=== PATIENT | female | born 1955 | race Caucasian/White ===

== ENCOUNTER → 2016-06-24 | Outpatient (REF) | payer BC ==
[~2016-06-24] MED LIST: /ESOM40CA; /FEXO18TA; ACET65TA; ADVICOR; ANTARA; BABY81CH; CALCCHW12; MULTIVIT; PERC5TAB8; PRIN5TAB; SYNT112T; TENO25TA; VALT500T; ZETI10TA; ZOLO100T
[2016-06-24 16:43] LABS: MEAN CORPUSCULAR HGB CONC 33.6 g/dl (32.0-36.5); MEAN CORPUSCULAR VOLUME 83.4 fl (80.0-96.0); RED CELL DISTRIBUTION WIDTH 12.8 % (11.5-14.5); WHITE BLOOD COUNT 4.2 K/mm3 (4.0-10.0)
[2016-06-24 17:15] LABS: ALBUMIN 4.2 GM/DL (3.2-5.2); ALBUMIN/GLOBULIN RATIO 1.4 (1.00-1.93); BILIRUBIN,TOTAL 0.4 MG/DL (0.2-1.0); CALCIUM LEVEL 9.5 MG/DL (8.8-10.2); CREATININE FOR GFR 1.07 MG/DL (0.55-1.02); GLOMERULAR FILTRATION RATE 55.5 (>45); POTASSIUM SERUM 4.3 MEQ/L (3.5-5.1); TOTAL PROTEIN 7.2 GM/DL (6.4-8.2)
== END ==
LOC: M SFHCCLAY 09:58
PROVIDERS: ATTEND Nurse Practitioner Family
DX: I10 Essential (primary) hypertension (principal); E78.4 Other hyperlipidemia; E03.9 Hypothyroidism, unspecified; E55.9 Vitamin D deficiency, unspecified

== ENCOUNTER → 2016-07-02 | Outpatient (CLI) | payer BC | LOC: M CLY 15:02 | PROVIDERS: ATTEND Internal Medicine Rheumatology ==

== ENCOUNTER → 2016-07-04 | Outpatient (CLI) | payer BC ==
[2016-07-04 18:34] LABS: BASO % 0.5 % (0.0-1.0); EOS # 0.1 K/mm3 (0.0-0.50); EOS % 2.5 % (0.0-3.0); LARGE UNSTAINED CELL # 0.1 K/mm3 (0.0-0.4); LARGE UNSTAINED CELL % 1.6 % (0.0-4.0); LYMPH # 1.1 K/mm3 (1.5-4.5); LYMPH % 25.5 % (24.0-44.0); MEAN CORPUSCULAR HEMOGLOBIN 27.9 pg (27.0-33.0); MEAN CORPUSCULAR HGB CONC 33.1 g/dl (32.0-36.5); MEAN CORPUSCULAR VOLUME 84.1 fl (80.0-96.0); MONO # 0.3 K/mm3 (0.0-0.8); MONO % 5.9 % (0.0-5.0); NEUTROPHILS # 2.9 K/mm3 (1.8-7.7); PLATELET COUNT, AUTOMATED 219 k/mm3 (150-450); RED CELL DISTRIBUTION WIDTH 13.2 % (11.5-14.5); WHITE BLOOD COUNT 4.5 K/mm3 (4.0-10.0)
[2016-07-04 19:08] LABS: ERYTHROCYTE SEDIMENTATION RATE 7 mm/hr (0-30)
--- NOTE | 2016-07-05 01:40 | REP ---
Clinical: Osteoarthritis. Technique: AP, lateral, bilateral oblique views of the right and left foot. Findings: Age-related changes of the interphalangeal joints are and metatarsophalangeal joints noted bilaterally. Moderate degenerative changes of the tarsometatarsal joints includes increase sclerosis and joint space narrowing/irregularity bilaterally. No obvious osseous erosions or significant spurring/osteophyte formation. No evidence for acute fracture or dislocation. No subcutaneous emphysema or radiodense foreign body. Impression: Bilateral mild to moderate age-related degenerative changes. Signed by John Sharp MD 07/05/2016 01:32 A
== END ==
LOC: M CLY 11:23
PROVIDERS: ATTEND Internal Medicine Rheumatology
DX: M19.071 Primary osteoarthritis, right ankle and foot (principal); M19.072 Primary osteoarthritis, left ankle and foot

== ENCOUNTER → 2016-07-29 | Outpatient (REF) | payer BC | LOC: M LABDRAWC 16:15 | PROVIDERS: ATTEND Nurse Practitioner Family | DX: R19.7 Diarrhea, unspecified (principal); R12 Heartburn; R10.9 Unspecified abdominal pain ==

== ENCOUNTER → 2016-08-01 | Outpatient (REF) | payer BC | LOC: M LAB REF 16:30 | PROVIDERS: ATTEND Nurse Practitioner Family | DX: R19.7 Diarrhea, unspecified (principal); R12 Heartburn; R10.9 Unspecified abdominal pain ==

== ENCOUNTER → 2016-11-05 | Outpatient (REF) | payer BC ==
[2016-11-05 11:40] LABS: ANION GAP 5 MEQ/L (8-16); BLOOD UREA NITROGEN 17 MG/DL (7-18); CALCIUM LEVEL 9.6 MG/DL (8.8-10.2); CARBON DIOXIDE LEVEL 31 MEQ/L (21-32); CHLORIDE LEVEL 107 MEQ/L (98-107); CREATININE FOR GFR 0.96 MG/DL (0.55-1.02); GLOMERULAR FILTRATION RATE > 60.0 (>45); GLUCOSE, FASTING 90 MG/DL (80-110); POTASSIUM SERUM 3.9 MEQ/L (3.5-5.1); SODIUM LEVEL 143 MEQ/L (136-145)
== END ==
LOC: M SFHCCLAY 09:17
PROVIDERS: ATTEND Nurse Practitioner Family
DX: E78.4 Other hyperlipidemia (principal)

== ENCOUNTER → 2017-05-06 | Outpatient (REF) | payer BC ==
[2017-05-06 11:39] LABS: MEAN CORPUSCULAR HGB CONC 32.7 g/dl (32.0-36.5); MEAN CORPUSCULAR VOLUME 82.6 fl (80.0-96.0); PLATELET COUNT, AUTOMATED 243 10^3/uL (150-450); RED CELL DISTRIBUTION WIDTH 13.8 % (11.5-14.5); WHITE BLOOD COUNT 4.5 10^3/uL (4.0-10.0)
[2017-05-06 12:28] LABS: ALBUMIN 4.1 GM/DL (3.2-5.2); ALBUMIN/GLOBULIN RATIO 1.37 (1.00-1.93); ALKALINE PHOSPHATASE 70 U/L (45-117); ALT/SGPT 27 U/L (12-78); ANION GAP 7 MEQ/L (8-16); AST/SGOT 30 U/L (7-37); BILIRUBIN,TOTAL 0.3 MG/DL (0.2-1.0); BLOOD UREA NITROGEN 24 MG/DL (7-18); CALCIUM LEVEL 9.5 MG/DL (8.8-10.2); CARBON DIOXIDE LEVEL 28 MEQ/L (21-32); CHLORIDE LEVEL 109 MEQ/L (98-107); CHOLESTEROL LEVEL 175 MG/DL (<200); CREATININE FOR GFR 0.93 MG/DL (0.55-1.02); GLOMERULAR FILTRATION RATE > 60.0 (>45); GLUCOSE, FASTING 86 MG/DL (80-110); POTASSIUM SERUM 4.3 MEQ/L (3.5-5.1); SODIUM LEVEL 144 MEQ/L (136-145); TOTAL PROTEIN 7.1 GM/DL (6.4-8.2); TRIGLYCERIDES LEVEL 89 MG/DL (<150)
== END ==
LOC: M SFHCCLAY 08:15
PROVIDERS: ATTEND Nurse Practitioner Family
DX: K21.9 Gastro-esophageal reflux disease without esophagitis (principal); I10 Essential (primary) hypertension; E78.4 Other hyperlipidemia; E03.9 Hypothyroidism, unspecified; E55.9 Vitamin D deficiency, unspecified

== ENCOUNTER → 2017-05-22 | Outpatient (CLI) | payer BC ==
--- NOTE | 2017-05-22 14:11 | REPMRS ---
Patient History The patient states she had a clinical breast exam in 05/18 Family history of prostate cancer in father at age 50 or over and breast cancer in paternal aunt at age 50 or over. Took hormonal contraceptives for 10 years. Taking unspecified hormones for 3 years 6 months. Digital Woman Screen Mammo: May 22, 2017 - Exam #: [id number] Bilateral CC and MLO view(s) were taken. Technologist: Shreya Casey, Technologist Prior study comparison: May 21, 2016, digital woman screen mammo performed at [facility] [place] [employer] [facility]. April 10, 2015, digital woman screen mammo performed at [facility] [place] [employer] [facility]. FINDINGS: There are scattered fibroglandular densities. There has been no change in the appearance of the mammogram from the prior studies. There is a mild amount of residual fibroglandular tissue which is fairly symmetric. There is no interval development of dominant mass, architectural distortion, or clustered microcalcification suggestive of malignancy. ASSESSMENT: BI-RADS/ACR category 1 mammogram. Negative. Recommendation Routine screening mammogram in 1 year (for women over age 40). This mammogram was interpreted with the aid of an FDA-approved computer-aided dectection system. Electronically Signed By: Michael Reza MD 05/22/17 [id number]
== END ==
LOC: M WHC 10:21
PROVIDERS: ATTEND Nurse Practitioner Family
DX: Z12.31 Encounter for screening mammogram for malignant neoplasm of breast (principal); Z92.0 Personal history of contraception

== ENCOUNTER → 2017-05-29 | Outpatient (CLI) | payer BC | LOC: M WHC 10:47 | DX: R10.2 Pelvic and perineal pain (principal) | CPT/HCPCS: 76830 ==

== ENCOUNTER → 2017-08-14 | Outpatient (REF) | payer BC ==
[2017-08-14 17:22] LABS: THYROID STIMULATING HORMONE 0.204 uIU/ML (0.358-3.740)
== END ==
LOC: M SFHCCLAY 09:52
DX: E03.9 Hypothyroidism, unspecified (principal)
CPT/HCPCS: 84443

== ENCOUNTER → 2017-11-17 | Outpatient (REF) | payer BC ==
[2017-11-17 12:45] LABS: THYROID STIMULATING HORMONE 0.542 uIU/ML (0.358-3.740)
== END ==
LOC: M SFHCCLAY 08:20
DX: E03.9 Hypothyroidism, unspecified (principal)
CPT/HCPCS: 84443

== ENCOUNTER → 2017-11-26 | Outpatient (CLI) | payer BC | LOC: M RAD 07:40 | DX: R10.11 Right upper quadrant pain (principal) | CPT/HCPCS: 76700 ==

== ENCOUNTER → 2018-05-15 | Outpatient (REF) | payer BC ==
[2018-05-15 11:53] LABS: ALBUMIN 4.2 GM/DL (3.2-5.2); ALKALINE PHOSPHATASE 86 U/L (45-117); ALT/SGPT 20 U/L (12-78); ANION GAP 8 MEQ/L (8-16); AST/SGOT 29 U/L (7-37); BILIRUBIN,TOTAL 0.4 MG/DL (0.2-1.0); BLOOD UREA NITROGEN 25 MG/DL (7-18); CARBON DIOXIDE LEVEL 26 MEQ/L (21-32); CHLORIDE LEVEL 107 MEQ/L (98-107); CHOLESTEROL LEVEL 171 MG/DL (<200); CHOLESTEROL RISK RATIO 2.342 (<5); CREATININE FOR GFR 0.95 MG/DL (0.55-1.30); GLOMERULAR FILTRATION RATE > 60.0 (>45); GLUCOSE, FASTING 93 MG/DL (70-100); HDL CHOLESTEROL 73 MG/DL (>40); HEMOGLOBIN 12.5 g/dl (12.0-15.5); LDL CHOLESTEROL 88 MG/DL (<100); MEAN CORPUSCULAR HEMOGLOBIN 26.7 pg (27.0-33.0); MEAN CORPUSCULAR HGB CONC 32.1 g/dl (32.0-36.5); MEAN CORPUSCULAR VOLUME 83.2 fl (80.0-96.0); NON-HDL-C 98 MG/DL; PLATELET COUNT, AUTOMATED 311 10^3/uL (150-450); POTASSIUM SERUM 4.2 MEQ/L (3.5-5.1); RED BLOOD COUNT 4.69 10^6/uL (4.00-5.40); SODIUM LEVEL 141 MEQ/L (136-145); THYROID STIMULATING HORMONE 0.281 uIU/ML (0.358-3.740); TRIGLYCERIDES LEVEL 50 MG/DL (<150)
[2018-05-15 12:03] LABS: TOTAL 25(OH) VITAMIN D 38.4 NG/ML (30.0-100.0)
== END ==
LOC: M SFHCCLAY 07:54
DX: K21.9 Gastro-esophageal reflux disease without esophagitis (principal); I10 Essential (primary) hypertension; E78.49 Other hyperlipidemia; E03.9 Hypothyroidism, unspecified; E55.9 Vitamin D deficiency, unspecified
CPT/HCPCS: 84443

== ENCOUNTER → 2018-05-28 | Outpatient (REF) | payer BC ==
[2018-05-30 15:11] LABS: HPV HYBRID CAPTURE II Negative (Negative)
== END ==
LOC: M SFHCWAGY 10:41
PROVIDERS: ATTEND Nurse Practitioner Family
DX: Z01.419 Encounter for gynecological examination (general) (routine) without abnormal findings (principal); Z12.72 Encounter for screening for malignant neoplasm of vagina; Z12.4 Encounter for screening for malignant neoplasm of cervix
CPT/HCPCS: 87624; G0123

== ENCOUNTER → 2018-05-28 | Outpatient (CLI) | payer BC ==
--- NOTE | 2018-05-28 11:24 | REPMRS ---
Patient History The patient states she had a clinical breast exam in 05/2018. Family history of prostate cancer at age 50 or over in father, breast cancer at age 50 or over in paternal aunt. Took hormonal contraceptives for 10 years. Took unspecified hormones for 3 years 6 months. 3D TOMOSYNTHESIS WAS PERFORMED. Digital Woman Screen Mammo: May 28, 2018 - Exam #: [id number] Bilateral CC and MLO view(s) were taken. Technologist: Luciana Garzon, Technologist Prior study comparison: May 22, 2017, digital woman screen mammo performed at [facility] [employer] [facility]. May 21, 2016, digital woman screen mammo performed at [facility] [employer] [facility]. FINDINGS: There are scattered fibroglandular densities. There has been no change in the appearance of the mammogram from the prior studies. There is a mild amount of residual fibroglandular tissue which is fairly symmetric. There is no interval development of dominant mass, architectural distortion, or clustered microcalcification suggestive of malignancy. Assessment: BI-RADS/ACR category 1 mammogram. Negative. Recommendation Routine screening mammogram in 1 year (for women over age 40). This mammogram was interpreted with the aid of an FDA-approved computer-aided dectection system. Electronically Signed By: Michael Reza MD 05/28/18 [id number]
== END ==
LOC: M WHC 10:20
PROVIDERS: ATTEND Nurse Practitioner Family
DX: Z12.31 Encounter for screening mammogram for malignant neoplasm of breast (principal); Z80.3 Family history of malignant neoplasm of breast; Z80.42 Family history of malignant neoplasm of prostate

== ENCOUNTER → 2018-09-10 | Outpatient (REF) | payer BC ==
[~2018-09-10] MED LIST changes: -/ESOM40CA; +NEXI1CAP3
[2018-09-10 16:51] LABS: THYROID STIMULATING HORMONE 0.611 uIU/ML (0.358-3.740)
== END ==
LOC: M SFHCCLAY 10:17
PROVIDERS: ATTEND Nurse Practitioner Family
DX: K21.9 Gastro-esophageal reflux disease without esophagitis (principal); E03.9 Hypothyroidism, unspecified

== ENCOUNTER → 2019-02-12 | Outpatient (REF) | payer BC ==
[2019-02-12 12:38] LABS: ALBUMIN 4.4 GM/DL (3.2-5.2); ALT/SGPT 24 U/L (12-78); BILIRUBIN,TOTAL 0.3 MG/DL (0.2-1.0); BLOOD UREA NITROGEN 17 MG/DL (7-18); CALCIUM LEVEL 10.2 MG/DL (8.8-10.2); CARBON DIOXIDE LEVEL 25 MEQ/L (21-32); CHLORIDE LEVEL 109 MEQ/L (98-107); CHOLESTEROL LEVEL 189 MG/DL (<200); CHOLESTEROL RISK RATIO 2.739 (<5); CREATININE FOR GFR 0.99 MG/DL (0.55-1.30); GLOMERULAR FILTRATION RATE > 60.0 (>45); GLUCOSE, FASTING 117 MG/DL (70-100); HDL CHOLESTEROL 69 MG/DL (>40); LDL CHOLESTEROL 104 MG/DL (<100); NON-HDL-C 120 MG/DL; POTASSIUM SERUM 4.4 MEQ/L (3.5-5.1); SODIUM LEVEL 142 MEQ/L (136-145); THYROID STIMULATING HORMONE 0.161 uIU/ML (0.358-3.740); TOTAL PROTEIN 7.2 GM/DL (6.4-8.2); TRIGLYCERIDES LEVEL 82 MG/DL (<150)
== END ==
LOC: M SFHCCLAY 09:00
PROVIDERS: ATTEND Nurse Practitioner Family
DX: N18.3 Chronic kidney disease, stage 3 (moderate) (principal); E78.5 Hyperlipidemia, unspecified; E03.9 Hypothyroidism, unspecified; E55.9 Vitamin D deficiency, unspecified

== ENCOUNTER → 2019-04-06 | Outpatient (CLI) | payer BC ==
[2019-04-06 09:30] LABS: HEMATOCRIT 39.4 % (36.0-47.0); HEMOGLOBIN 12.5 g/dl (12.0-15.5); MEAN CORPUSCULAR HEMOGLOBIN 26.8 pg (27.0-33.0); MEAN CORPUSCULAR HGB CONC 31.7 g/dl (32.0-36.5); MEAN CORPUSCULAR VOLUME 84.5 fl (80.0-96.0); PLATELET COUNT, AUTOMATED 260 10^3/uL (150-450); RED BLOOD COUNT 4.66 10^6/uL (4.00-5.40); WHITE BLOOD COUNT 5.7 10^3/uL (4.0-10.0)
[2019-04-06 09:50] LABS: INR 1.07; PROTHROMBIN TIME 13.6 SECONDS (11.8-14.0)
[2019-04-06 10:01] LABS: ALT/SGPT 17 U/L (12-78); BILIRUBIN,TOTAL 0.5 MG/DL (0.2-1.0); BLOOD UREA NITROGEN 14 MG/DL (7-18); CALCIUM LEVEL 9.8 MG/DL (8.8-10.2); CARBON DIOXIDE LEVEL 25 MEQ/L (21-32); CHLORIDE LEVEL 108 MEQ/L (98-107); CREATININE FOR GFR 0.98 MG/DL (0.55-1.30); GLOMERULAR FILTRATION RATE > 60.0 (>45); GLUCOSE, FASTING 81 MG/DL (70-100); POTASSIUM SERUM 4.4 MEQ/L (3.5-5.1); SODIUM LEVEL 140 MEQ/L (136-145); TOTAL PROTEIN 7.1 GM/DL (6.4-8.2)
[2019-04-06 10:22] LABS: ERYTHROCYTE SEDIMENTATION RATE 12 mm/hr (0-30)
--- NOTE | 2019-04-06 10:23 | REP ---
Two-view chest: 04/06/2019. Indication: Preoperative assessment. Comparison: 07/04/2009. Findings: The lungs are clear. There is no pleural effusion or pneumothorax. The cardiomediastinal silhouette is unremarkable. Impression: Clear lungs. Electronically Signed by Eitan Cooney DO 04/06/2019 10:15 A
--- NOTE | 2019-04-06 22:09 | ECGEPIP ---
[facility] Test Date: 2019-04-06 Pat Name: ALIS GONZALEZ Department: Room: - Gender: Female Pharmacy Manager: : 1955 Requested By: Karen Webster @ [facility] Order Number: [id number] Reading MD: Nish Stone Measurements Intervals [place] Rate: 57 P: 56 RI: 202 QRS: 24 QRSD: 89 T: 41 QT: 418 QTc: 410 Interpretive Statements Sinus bradycardia Normal EKG Comparison tracing not on file Electronically Signed on 04-06-2019 22:09:20 EST by Nish Stone
== END ==
LOC: M LAB 08:53
PROVIDERS: ATTEND Orthopaedic Surgery
DX: Z01.818 Encounter for other preprocedural examination (principal); M19.012 Primary osteoarthritis, left shoulder

== ENCOUNTER 2019-04-23 07:00 | Inpatient (IN) | payer BC ==
--- NOTE | 2019-04-14 10:46 | HPE ---
DATE OF ADMISSION: 04/23/2019 ATTENDING PHYSICIAN: Dr. Toth CHIEF COMPLAINT: Left shoulder pain and stiffness. HISTORY: The patient is a pleasant 63-year-old female with progressively worsening left shoulder pain and stiffness. She has failed to improve with conservative measures. She continues to have symptoms with activities of daily living. She has consented for an elective left total shoulder arthroplasty with Dr. Toth for her continued symptoms. Medical optimization pending with Dr. Hobson. CURRENT MEDICATIONS: - fenofibrate 43 mg daily - Protonix 40 mg twice daily - levocetirizine 5 mg daily - lovastatin 40 mg daily - Zoloft 100 mg daily - levothyroxine 125 mcg daily - dicyclomine 10 mg daily - calcium with vitamin D daily - losartan 40 mg daily ALLERGIES: 1. SULFA. 2. PERCOCET. CHRONIC MEDICAL CONDITIONS: Hypertension. Hyperlipidemia. Seasonal allergies. Hypothyroid. Anxiety. Depression. Gastroesophageal reflux disease. PAST SURGICAL HISTORY: Right shoulder reverse arthroplasty. Left carpal metacarpal joint arthroplasty. Three sections. Left knee arthroscopy times two. SOCIAL HISTORY: The patient is a former smoker and occasionally consumes alcohol. She is and lives at home with . REVIEW OF SYSTEMS: The patient denies fevers, chills, nausea, vomiting or diarrhea. She denies chest pain, shortness of breath, lightheadedness, dizziness or headaches. She denies any recent upper respiratory or urinary tract infection symptoms. No complaints of abdominal pain. She does continue to have left shoulder pain and stiffness with activities of daily living. PHYSICAL EXAMINATION: GENERAL: Well-nourished, well-developed female in no apparent distress. She is alert, oriented and cooperative. Her mood and affect are appropriate. VITAL SIGNS: Height 5 feet 4 inches, weight 172 pounds, temperature 97.9, blood pressure 120/80, heart rate 65, respirations 14. NECK: Supple without lymphadenopathy. HEART: Regular rate and rhythm. LUNGS: Clear to auscultation bilaterally. Breathing is regular and nonlabored. ABDOMEN: Soft and nontender to palpation. Bowel sounds are present. MUSCULOSKELETAL: Left shoulder exhibits no gross abnormalities. Skin is intact. No real tenderness to palpation. The patient can forward flex shoulder to approximately 120 degrees, abduct to 90 degrees, internally rotate to the SI joint and externally rotate to 10 degrees. Strength is 4+/5 secondary to pain and stiffness. Her radial pulse is palpable. Capillary refill is brisk and her sensation is intact. LABORATORY DATA: EKG notable for sinus bradycardia, otherwise normal EKG. Chest x-ray the lungs are clear. There is no pleural effusion or pneumothorax. The cardiomediastinal silhouette is unremarkable. Left shoulder x-ray notable for end-stage degenerative changes. Prothrombin time 13.6, INR 1.07. Comprehensive metabolic profile: Fasting glucose 81, BUN 14, creatinine 0.98, GFR greater than 60, sodium 140, potassium 4.4, chloride elevated at 108, carbon dioxide 25, anion gap decreased at 7, calcium 9.8, AST 21, ALT 17, alkaline phosphatase 92, total bilirubin 0.5, total protein 7.1, albumin 4.0, albumin-globulin ratio 1.29. Complete blood count: ESR 12, WBC is 5.7, RBC is 4.66, hemoglobin 12.5, hematocrit 39.4, platelets 260. IMPRESSION: Left shoulder osteoarthritis with x-rays notable for end-stage degenerative changes. PLAN: The patient has consented for an elective left total shoulder arthroplasty with Dr. Toth for her continued symptoms. Medical optimization pending with Dr. Hobson. KRYSTAL
[~2019-04-23] VITALS: Ht 162.6 cm; Wt 80.3 kg
[2019-04-23] VITALS (7 sets, daily range): BP systolic 112–125; BP diastolic 39–74
[~2019-04-23 07:00] MED LIST changes: +ACETAMINOPHEN 500 MG TAB PO ONE; +CALCTAB41 PO; +DIOV160T6 PO; +FENO134C PO; +FENO43CA PO; +LEVO112T2 PO; +LEVO125T4 PO; +LEVOTAB10 PO; +LIDOCAINE 1% MDV 20ML VIAL SQ PRN; +LOSA50TA88 PO; +LOVA40TA PO; +LR 1,000 ML IV ONE; +PROBCAP14 PO; +PROTPAK PO; +SERT-138 PO; +ceFAZolin SOD 2 GM in IV 1 EA IV ONE
[2019-04-23] MEDS ORDERED: ceFAZolin 1GM INJ (J0690 PER 500MG) As Ordered ONE (08:12)
[2019-04-23] MEDS ORDERED: EPINEPHrine INJ 1 MG/ML 1ML AMP As Ordered ONE (08:22)
[2019-04-23] MEDS ORDERED: LIDOCAINE 2% INJ 100 MG/5 ML SDV (FOR ANES.) As Ordered ONE (08:25)
[2019-04-23] MEDS ORDERED: ROCURONIUM BROMIDE 50 MG/5 ML VIAL As Ordered ONE (08:25)
[2019-04-23] MEDS ORDERED: PROPOFOL 200 MG/20 ML VIAL As Ordered ONE ×2 (08:25→12:08)
[2019-04-23] MEDS ORDERED: SUGAMMADEX SODIUM 500 MG/5 ML VIAL (BRIDION) As Ordered ONE (08:26)
[2019-04-23] MEDS ORDERED: dexameTHASONE 4 MG/ML 1ML VIAL (J1100) As Ordered ONE (08:26)
[2019-04-23] MEDS ORDERED: ONDANSETRON 4MG/2ML VIAL (J2405) As Ordered ONE (08:26)
[2019-04-23] MEDS ORDERED: MIDAZOLAM INJ 2 MG/2 ML VIAL (J2250) As Ordered ONE ×2 (08:27→08:43)
[2019-04-23] MEDS ORDERED: fentaNYL 100 MCG/2 ML INJECTION (J3010) As Ordered ONE ×3 (08:27→12:07)
[2019-04-23] MEDS: SERTRALINE 100 MG TAB PO SCH (09:00)
[2019-04-23] MEDS: PANTOPRAZOLE 40MG TAB (PROTONIX) PO SCH (09:00)
[2019-04-23] MEDS ORDERED: VANCOMYCIN 1000 MG/20 ML VIAL (J3370) As Ordered ONE (10:17)
[2019-04-23] MEDS ORDERED: EPINEPHrine INJ 1 MG/ML 1ML AMP ONE (10:27)
[2019-04-23] MEDS ORDERED: dexameTHASONE 10 MG/1 ML VIAL PRES.FREE (J1100) ONE (10:27)
[2019-04-23] MEDS ORDERED: ROPIvacaine 0.5% 30 ML INJECTION (J2795 PER 1MG) ONE (10:27)
[2019-04-23] MEDS ORDERED: PROPOFOL 500 MG/50 ML VIAL As Ordered ONE (10:51)
[2019-04-23] MEDS ORDERED: LACRILUBE (AKWA TEARS) OPHTH OINT 3.5 GM As Ordered ONE (11:09)
[2019-04-23] MEDS ORDERED: METHOCARBAMOL 1,000 MG/10 ML VIAL (J2800) As Ordered ONE (11:15)
[2019-04-23] MEDS ORDERED: ACETAMINOPHEN 1000MG 100ML IV BTL (OFIRMEV) (J0131 PER 10MG) As Ordered ONE (11:15)
[2019-04-23] MEDS ORDERED: ePHEDrine SULFATE 25 MG/5 ML(5MG/ML) SYRINGE As Ordered ONE (11:35)
[2019-04-23] MEDS ORDERED: fentaNYL 100 MCG/2 ML INJECTION (J3010) IV PRN (15:00)
[2019-04-23] MEDS ORDERED: NORCO, ANEXSIA 5/325MG TABLET (HYDROcodone/ACETAMINOPHEN) PO PRN (15:00)
[2019-04-23] MEDS ORDERED: ONDANSETRON 4MG/2ML VIAL (J2405) IV PRN (15:00)
[2019-04-23] MEDS ORDERED: LR 1,000 ML IV SCH (15:00)
[2019-04-23] MEDS ORDERED: HYDROMORPHONE HCL 0.5 MG/ 0.5 ML SYRINGE (J1170 PER 1) IV PRN (15:00)
[2019-04-23] MEDS ORDERED: ceFAZolin SOD 2 GM in IV 1 EA IV SCH (15:00)
--- NOTE | 2019-04-23 15:44 | REP ---
LEFT SHOULDER, SINGLE VIEW: Single view of the left shoulder performed. There is a metallic prosthesis in the proximal left humerus. There are overlying skin gennaro. There is mild joint space narrowing and spurring at the acromioclavicular joint. The osseous structures are well aligned. Electronically Signed by Michael Reza MD 04/26/2019 09:36 A
[2019-04-23] MEDS ORDERED: ACETAMINOPHEN TAB 650MG DOSE (2X325MG) PO PRN (16:00)
[2019-04-23] MEDS ORDERED: NS IV ONE (16:00)
[2019-04-23] MEDS ORDERED: CALCIUM CHLORIDE 10% 1 GM/10 ML SYR As Ordered ONE (16:00)
[2019-04-23] MEDS ORDERED: METHOCARBAMOL IV ONE (16:00)
[2019-04-23] MEDS ORDERED: FLEET ENEMA PR PRN (16:00)
[2019-04-23] MEDS: LR 1,000 ML IV SCH (16:45)
[2019-04-23] MEDS: ceFAZolin SOD 2 GM in IV 1 EA IV SCH ×2 (17:24→23:23)
[2019-04-23] MEDS ORDERED: SIMVASTATIN 40 MG TAB PO SCH (21:00)
[2019-04-23] MEDS: HYDROMORPHONE HCL 0.5 MG/ 0.5 ML SYRINGE (J1170 PER 1) IV PRN (23:23)
[2019-04-24 02:00] VITALS: BP 112/58
[2019-04-24] MEDS: LR 1,000 ML IV SCH (03:46)
[2019-04-24] MEDS: HYDROMORPHONE HCL 0.5 MG/ 0.5 ML SYRINGE (J1170 PER 1) IV PRN (05:02)
[2019-04-24] MEDS: ceFAZolin SOD 2 GM in IV 1 EA IV SCH (05:02)
[2019-04-24 06:00] VITALS: BP 127/60
[2019-04-24] MEDS ORDERED: ACETAMINOPHEN 500 MG TAB PO PRN (06:00)
[2019-04-24] MEDS ORDERED: traMADol 50 MG TAB PO PRN ×2 (06:00)
[2019-04-24] MEDS ORDERED: LEVOTHYROXINE 112MCG TABLET (0.112MG) PO SCH (06:00)
[2019-04-24] MEDS ORDERED: HYDR-3713 PO (06:40)
[2019-04-24 06:53] LABS: HEMATOCRIT 31.7 % (36.0-47.0); MEAN CORPUSCULAR HEMOGLOBIN 26.5 pg (27.0-33.0); MEAN CORPUSCULAR HGB CONC 31.5 g/dl (32.0-36.5); MEAN CORPUSCULAR VOLUME 84.1 fl (80.0-96.0); PLATELET COUNT, AUTOMATED 216 10^3/uL (150-450); RED BLOOD COUNT 3.77 10^6/uL (4.00-5.40); WHITE BLOOD COUNT 8.8 10^3/uL (4.0-10.0)
[2019-04-24 07:12] LABS: INR 1.11; PROTHROMBIN TIME 14.1 SECONDS (11.8-14.0)
[2019-04-24 07:18] LABS: BLOOD UREA NITROGEN 13 MG/DL (7-18); CALCIUM LEVEL 8.2 MG/DL (8.8-10.2); CARBON DIOXIDE LEVEL 27 MEQ/L (21-32); CHLORIDE LEVEL 106 MEQ/L (98-107); CREATININE FOR GFR 0.87 MG/DL (0.55-1.30); GLOMERULAR FILTRATION RATE > 60.0 (>45); GLUCOSE, FASTING 109 MG/DL (70-100); POTASSIUM SERUM 3.5 MEQ/L (3.5-5.1); SODIUM LEVEL 140 MEQ/L (136-145)
[2019-04-24] MEDS: SERTRALINE 100 MG TAB PO SCH (09:05)
[2019-04-24] MEDS: PANTOPRAZOLE 40MG TAB (PROTONIX) PO SCH (09:05)
[2019-04-24 10:00] VITALS: BP 114/60
--- NOTE | 2019-04-24 20:33 | CR ---
DATE OF CONSULTATION: 04/23/2019 CONSULTATION FOR: Dr. Karen Toth This is a post-op evaluation of Tiffany Mohr. She underwent left total shoulder today. Preop evaluation done by Dr. Calroz Hobson 04/09/2019. Past medical history shows hypertensive heart disease, hyperlipidemia, hypothyroidism, chronic depression, irritable bowel syndrome, urinary urgency and frequency, gastroesophageal reflux disease (GERD) with esophagitis, osteopenia in DEXA scan 02/10, dermatofibroma and nummular dermatitis, lichen simplex chronicus. She had an echocardiogram 01/14. Normal ejection fraction, aortic sclerosis, very mild aortic regurgitation. She had a nuclear stress test back June 2011. Ejection fraction 77%, normal perfusion. SURGICAL HISTORY: Hysterectomy (ovaries still in place), upper endoscopy July 2012, (C) section times three, liver biopsy (benign pathology) 2001, breast lumpectomy, colonoscopy July 2012, fecal immunochemical test (FIT) through brass instrument repair technician in [facility] March 2019, carpal tunnel left wrist July 2015, arthroscopy left knee 2017. FAMILY HISTORY: Father of prostate cancer. He had hypertension. Mother had strokes and history of arthritis. Sister had peripheral artery disease of diabetic complications. History of factor V Leiden mutation in a sister. SOCIAL HISTORY: Nonsmoker. Low to moderate alcohol intake. 30 years. MEDICATIONS: - supplemental calcium - probiotic - fenofibrate 134 mg daily - Xyzal 5 mg daily - Protonix 40 mg twice a day - losartan 50 mg daily - lovastatin 40 mg daily - Zoloft 100 mg daily - levothyroxine 112 mcg daily REVIEW OF SYSTEMS: No chest pain, shortness of breath, palpitations. PHYSICAL EXAMINATION: 122/62, pulse 60, respiratory rate 18, 95%. General appearance: Alert, conversant, in no distress. HEENT: Unremarkable. Lungs: Clear. Heart: Regular rate and rhythm without murmur. Abdomen. Soft, nontender. No masses. No peripheral edema. Normal strength in the arms and legs. Preop labs are reviewed and they are unremarkable. IMPRESSION: 1. Hypertensive heart disease. Would hold off giving her losartan until her blood pressure declares itself postoperatively. Losartan could be restarted if blood pressure becomes elevated. 2. Hyperlipidemia. Continue lovastatin 40 mg daily. Hold off on the fenofibrate for now. 3. Hypothyroidism. Will give her a dose of levothyroxine 112 mcg daily. 4. History of depression. Continue her Zoloft 100 mg daily. 5. Family history of factor V Leiden mutation. Standard deep venous thrombosis (DVT) prophylaxis postoperatively advised.
[2019-04-25] MEDS ORDERED: FLUBLOK(EGG FREE)(QUAD)INFLUENZA VACC 0.5ML SYRINGE (90682)18YRS&OLDER IM ONE (09:00)
--- NOTE | 2019-04-26 17:11 | RO ---
DATE OF PROCEDURE: 04/23/2019 PREPROCEDURE DIAGNOSIS: Left shoulder degenerative arthritis. POSTPROCEDURE DIAGNOSIS: Left shoulder degenerative arthritis. OPERATIVE PROCEDURE: Left total shoulder replacement using a size 44 glenoid with a size 8 stem with a 44 x 15 stem and head. Prosthesis was made by [employer]. SURGEON: Karen Toth MD LAND SURVEYOR: Emily Mariscal ANESTHESIA: Left interscalene nerve block with a general laryngeal mask anesthetic. SPECIMENS: Humeral head. Second specimen was a cystic mass anterior aspect of the shoulder consistent with a ganglion cyst. ESTIMATED BLOOD LOSS: 200 mL COMPLICATIONS: None. DESCRIPTION OF PROCEDURE: Antibiotics were given intravenously preoperatively, and a successful left interscalene nerve block, and then a general laryngeal mask anesthetic was established. She was placed in the supine position at the edge of the table. Scaphoid bump utilized, head well supported. Left shoulder area was carefully prepped and draped in the usual sterile fashion. After appropriate time out, a deltopectoral incision was made. Superficial dissection was taken down to the deltopectoral interval painstakingly medially. The feeders were coagulated. Clavipectoral fascia divided and underlying this right in frontal of the subscapularis tendon, there was a large cystic structure and as I was dissecting it out it ruptured and was filled with fluid, ganglion type fluid consistent with a ganglion cyst. It was decompressed and the wall of the cyst was sent for formal pathologic specimen. The biceps tendon was identified distally and the biceps sheath opened and tenodesed to the pectoralis tendon and then the biceps tendon was tenotomized and then I opened the rotator interval up to the superior aspect of the glenoid. I dissected around the inferior border of the subscap. I could identify the axillary nerve by digital palpation and protect it with a retractor inferiorly and then expose the bicipital groove and the lesser tuberosity for preparation for lesser tuberosity osteotomy. Once I had adequate exposure, the osteotomy was performed. A #2 Ethibond was placed in the superior aspect of the osteotomy and inferior aspect. The humerus was then gradually externally rotated and dislocated and I released the inferior capsule of the humerus right on bone taking great care to make sure to protect the axillary nerve at all times. Once adequate exposure had been obtained at this point I used the guide to perform the proximal humeral osteotomy, estimating 30 degrees of version. The osteotomy was thus performed and it was revised a bit because at first it was a bit thin and then I took an adequate amount of bone eventually. I then turned out attention back to exposing the glenoid. The inferior capsule was from the underlying subscapularis. This was done carefully with a blunt Hohmann in inferior axillary area reflecting the axillary nerve inferiorly. Once I was certain that the nerve was protected, the capsule was released from the edge of the glenoid to include the labrum anteriorly and inferiorly, and this was taken back to about the 5-o'clock position and then similarly on the humeral neck, I released the capsule all around to beyond the midline, even posteriorly. A rongeur was used to remove the underlying axillary osteophytes as well. The scapular neck was exposed by excising the anterior labrum and sliding a Gould elevator subperiosteal on the glenoid neck and then a Danaform type retractor placed. Then a Sonnabend retractor used to reflect the humerus posteriorly. Eventually we were able to get adequate exposure of the glenoid. The labrum was excised 360 degrees including the biceps insertion point. The 44 mm guide fit the best. It was used to help center the pin. The pin was driven and as I palpated along the anterior aspect of the neck of the scaphoid the pin came out quite medially indicative of likely excellent trajectory. The center hole was placed over the pin and then the drill guide was applied and then the anterior drill hole made, then the peg was placed for antirotation and then the remaining two holes were drilled. It should be noted that first before drilling the holes, I did use the reamer. That was placed in the center hole and by hand I reamed the face of the glenoid such that it was smooth and it was down to the eburnated bone. The trial 44 fit very nicely with no rocking, so at this point I prepared the glenoid for cementing by copiously irrigating out the glenoid and on the back table, some of the reamings were placed over the real glenoid implant using the bone grafting device for the center PEG. The cement was mixed by myself and then placed into a syringe and then just the three peg holes were filled with cement. No cement was placed on the face of the glenoid and then the real implant was inserted and packed it into position. We then turned our attention back to the proximal humerus, exposing that once again and then placed the reamers as lateral as possible right near the bicipital groove and we reamed up to 8 mm. I used the Brosteotome and then the trial #8 was placed. We trialed first with a +18, but I felt that it was a bit too snug. The #15 neck size seemed to have better translation to allow at least 50% translation posteriorly. Thus I removed all the trials, copiously irrigated out the humerus. Three drill holes were placed and #2 Ethibonds were placed with the loops lateral anticipating a rack and hitch type repair of the lesser tuberosity osteotomy. Once all the sutures had been passed, I placed the real implant, making sure the sutures passed around the implant and made sure they slid and glided as we impacted the implant. Once that was in place, I irrigated out the glenohumeral joint once again, then reduced the shoulder. Some vancomycin powder was placed in the depths of the glenohumeral joint and then I passed the tails of the looped sutures for the subscap repair around the lesser tuberosity osteotomy. All six limbs were passed and then I repaired the rotator interval using a #1 PDS suture. It is noteworthy there is a very small supraspinatus anterior rotator cuff tear noted and I tried to incorporate that into the sutures at the rotator interval. The traction suture previously placed on the subscap was also used to close the superolateral corner and once that lesser tuberosity position has been set with these sutures, the rack and hitch suturing was performed on all three of the looped sutures to close the subscap lesser tuberosity down anatomically and tied. This provided excellent fixation of the subscap. She had excellent rotation easily to 45 to 50 degrees, easily could push place her hand onto her stomach. We copiously irrigated once again, placed a bit more vancomycin into the superficial wounds, subdermal tissues were closed with interrupted #2-0 PDS sutures, skin was closed with gennaro covered by an Optifoam and a dry sterile bulky dressing. She was placed into a sling then awakened from general laryngeal mask anesthetic after having tolerated the procedure well and then transferred to the recovery room in stable condition. There were no intraoperative complications.
== END 2019-04-24 13:20 | disposition home or self-care (01) | DRG 322 ==
LOC: M OR 07:00 → M MS5PR 16:04
PROVIDERS: ADMIT Orthopaedic Surgery; ATTEND Orthopaedic Surgery
PROC: 0RRK0JZ Replacement of Left Shoulder Joint with Synthetic Substitute, Open Approach (ICD-10-PCS; principal; 2019-04-23 09:45)
DX: M19.012 Primary osteoarthritis, left shoulder (principal); I11.9 Hypertensive heart disease without heart failure; Z79.899 Other long term (current) drug therapy; Z88.2 Allergy status to sulfonamides; Z88.8 Allergy status to other drugs, medicaments and biological substances; E78.5 Hyperlipidemia, unspecified; E03.9 Hypothyroidism, unspecified; F41.9 Anxiety disorder, unspecified; F32.9 Major depressive disorder, single episode, unspecified; K21.9 Gastro-esophageal reflux disease without esophagitis; Z87.891 Personal history of nicotine dependence; L28.0 Lichen simplex chronicus; I35.0 Nonrheumatic aortic (valve) stenosis

== ENCOUNTER → 2019-06-18 | Outpatient (REF) | payer BC ==
[~2019-06-18] MED LIST changes: -ACETAMINOPHEN 500 MG TAB PO ONE; +FENO1CAP16 PO; -FENO43CA PO; +HYDR-3713 PO; -LIDOCAINE 1% MDV 20ML VIAL SQ PRN; -LR 1,000 ML IV ONE; -ceFAZolin SOD 2 GM in IV 1 EA IV ONE
[2019-06-18 12:30] LABS: MAGNESIUM LEVEL 2.1 MG/DL (1.8-2.4); PERCENT SATURATION 11.2 % (13.2-45.0)
[2019-06-18 12:35] LABS: TOTAL 25(OH) VITAMIN D 31.6 NG/ML (30.0-100.0)
== END ==
LOC: M LABDRAWC 11:49
PROVIDERS: ATTEND Internal Medicine Gastroenterology
DX: R10.31 Right lower quadrant pain (principal); R19.7 Diarrhea, unspecified; R12 Heartburn; R13.10 Dysphagia, unspecified; E55.9 Vitamin D deficiency, unspecified

== ENCOUNTER → 2019-06-18 | Outpatient (REF) | payer BC ==
[2019-06-18 12:00] LABS: HEMATOCRIT 39.6 % (36.0-47.0); MEAN CORPUSCULAR HEMOGLOBIN 25.4 pg (27.0-33.0); MEAN CORPUSCULAR HGB CONC 30.3 g/dl (32.0-36.5); MEAN CORPUSCULAR VOLUME 83.7 fl (80.0-96.0); PLATELET COUNT, AUTOMATED 272 10^3/uL (150-450); RED BLOOD COUNT 4.73 10^6/uL (4.00-5.40); WHITE BLOOD COUNT 5.5 10^3/uL (4.0-10.0)
[2019-06-18 12:13] LABS: ALBUMIN 4.2 GM/DL (3.2-5.2); ALT/SGPT 17 U/L (12-78); BILIRUBIN,TOTAL 0.3 MG/DL (0.2-1.0); BLOOD UREA NITROGEN 18 MG/DL (7-18); CALCIUM LEVEL 9.3 MG/DL (8.8-10.2); CARBON DIOXIDE LEVEL 27 MEQ/L (21-32); CHLORIDE LEVEL 108 MEQ/L (98-107); CHOLESTEROL LEVEL 172 MG/DL (<200); CREATININE FOR GFR 0.92 MG/DL (0.55-1.30); GLOMERULAR FILTRATION RATE > 60.0 (>45); GLUCOSE, FASTING 90 MG/DL (70-100); HDL CHOLESTEROL 63 MG/DL (>40); LDL CHOLESTEROL 92 MG/DL (<100); NON-HDL-C 109 MG/DL; POTASSIUM SERUM 4.2 MEQ/L (3.5-5.1); SODIUM LEVEL 144 MEQ/L (136-145); THYROID STIMULATING HORMONE 0.579 uIU/ML (0.358-3.740); TOTAL 25(OH) VITAMIN D 27.6 NG/ML (30.0-100.0); TOTAL PROTEIN 7.1 GM/DL (6.4-8.2); TRIGLYCERIDES LEVEL 84 MG/DL (<150)
== END ==
LOC: M SFHCCLAY 09:14
PROVIDERS: ATTEND Nurse Practitioner Family
DX: K21.9 Gastro-esophageal reflux disease without esophagitis (principal); I10 Essential (primary) hypertension; E78.49 Other hyperlipidemia; E03.9 Hypothyroidism, unspecified

== ENCOUNTER → 2019-08-05 | Outpatient (CLI) | payer BC ==
--- NOTE | 2019-08-05 15:03 | REPMRS ---
Patient History The patient states she had a clinical breast exam in August 2019. Family history of prostate cancer at age 50 or over in father, breast cancer at age 50 or over in paternal aunt. Took hormonal contraceptives for 10 years. Took unspecified hormones for 3 years 6 months. Digital Woman Screen Mammo: August 05, 2019 - Exam #: [id number] Bilateral CC and MLO view(s) were taken. Technologist: Barby Looney, Technologist Prior study comparison: May 28, 2018, bilateral digital woman screen mammo performed at [facility]. May 22, 2017, digital woman screen mammo performed at [facility]. May 21, 2016, digital woman screen mammo performed at [facility]. FINDINGS: There are scattered fibroglandular densities. There has been no change in the appearance of the mammogram from the prior studies. There is a mild amount of scattered fibroglandular density which is fairly symmetric. There is no interval development of dominant mass, architectural distortion, or grouped microcalcification suggestive of malignancy. 3-D tomosynthesis shows no additional findings. Assessment: BI-RADS/ACR category 1 mammogram. Negative Mammogram. Recommendation Routine screening mammogram of both breasts in 1 year (for women over age 40). This patient's Lifetime Breast Cancer Risk is estimated at 7.6 %. This mammogram was interpreted with the aid of an FDA-approved computer-aided dectection system. Electronically Signed By: Everardo Guerrero MD 08/05/19 [id number]
== END ==
LOC: M WHC 10:18
PROVIDERS: ATTEND Nurse Practitioner Family
DX: Z12.31 Encounter for screening mammogram for malignant neoplasm of breast (principal); Z80.42 Family history of malignant neoplasm of prostate; Z80.3 Family history of malignant neoplasm of breast

== ENCOUNTER → 2019-08-05 | Outpatient (CLI) | payer BC | LOC: M PLALAB 11:28 | PROVIDERS: ATTEND Nurse Practitioner Family | DX: Z13.79 Encounter for other screening for genetic and chromosomal anomalies (principal) ==

== ENCOUNTER → 2019-11-01 | Outpatient (REF) | payer BC ==
[2019-11-01 11:52] LABS: THYROID STIMULATING HORMONE 0.556 uIU/ML (0.358-3.740)
[2019-11-01 11:55] LABS: TOTAL 25(OH) VITAMIN D 40.5 NG/ML (30.0-100.0)
== END ==
LOC: M SFHCCLAY 08:26
PROVIDERS: ATTEND Nurse Practitioner Family
DX: E03.9 Hypothyroidism, unspecified (principal); E55.9 Vitamin D deficiency, unspecified

== ENCOUNTER → 2020-02-10 | Outpatient (REF) | payer BC | LOC: M SFHCCLAY 19:04 | PROVIDERS: ATTEND Nurse Practitioner Family | DX: E03.9 Hypothyroidism, unspecified (principal) ==

== ENCOUNTER → 2020-07-31 | Outpatient (REF) | payer BC | LOC: M SFHCCLAY 09:37 | PROVIDERS: ATTEND Nurse Practitioner Family | DX: E03.9 Hypothyroidism, unspecified (principal) ==

== ENCOUNTER → 2020-08-09 | Outpatient (CLI) | payer BC ==
--- NOTE | 2020-08-09 16:02 | REPMRS ---
Patient History The patient states she had a clinical breast exam in July 2020. Family history of prostate cancer at age 50 or over in father, breast cancer at age 50 or over in paternal aunt. Took hormonal contraceptives for 10 years. Took unspecified hormones for 3 years 6 months. Digital Woman Screen Mammo: August 09, 2020 - Exam #: [id number] Bilateral CC and MLO view(s) were taken. Technologist: Eliana Acosta Technologist Prior study comparison: August 05, 2019, bilateral digital woman screen mammo performed at [facility]. May 28, 2018, bilateral digital woman screen mammo performed at [facility]. May 22, 2017, digital woman screen mammo performed at [facility]. FINDINGS: There are scattered fibroglandular densities. The Volpara volumetric breast density category is:B. There has been no change in the appearance of the mammogram from the prior studies. There is a mild amount of scattered fibroglandular density which is fairly symmetric. There is no interval development of dominant mass, architectural distortion, or grouped microcalcification suggestive of malignancy. 3-D tomosynthesis shows no additional findings. Assessment: BI-RADS/ACR category 1 mammogram. Negative Mammogram. Recommendation Routine screening mammogram of both breasts in 1 year (for women over age 40). This patient's [facility] Lifetime Breast Cancer Risk is estimated at 7.3 %. This mammogram was interpreted with the aid of an FDA-approved computer-aided dectection system. Electronically Signed By: Everardo Guerrero MD 08/09/20 [id number]
== END ==
LOC: M WHC 14:24
PROVIDERS: ATTEND Nurse Practitioner Family
DX: Z12.31 Encounter for screening mammogram for malignant neoplasm of breast (principal); Z92.0 Personal history of contraception

== ENCOUNTER → 2020-08-16 | Outpatient (CLI) | payer BC ==
--- NOTE | 2020-08-16 09:10 | REP ---
INDICATION: RUQ ABD PAIN COMPARISON: 11/26/2017 TECHNIQUE: Real time pollard scale ultrasound examination using curved array transducer. FINDINGS: Liver is hyperechoic and mildly enlarged measuring 19.5 cm in craniocaudal length. No focal hepatic lesion identified. Pancreas is incompletely evaluated but visualized portions appear normal. Gallbladder demonstrates 7 mm and 5 mm suspected benign polyps. No gallstones, wall thickening, or pericholecystic fluid. No biliary ductal dilatation is appreciated and the common bile duct measures 6.2 mm diameter. Right kidney is normal in reniform shape without hydronephrosis and measures 11.4 x 5.6 x 4.5 cm cm. No ascites in the visualized right upper quadrant. IMPRESSION: 1. Mild hepatosteatosis and hepatomegaly. 2. Small benign appearing gallbladder polyps. <Electronically signed by John Sharp > 08/16/20 [id number]
== END ==
LOC: M RAD 08:26
PROVIDERS: ATTEND Nurse Practitioner Family
DX: R16.0 Hepatomegaly, not elsewhere classified (principal); K76.0 Fatty (change of) liver, not elsewhere classified; K82.4 Cholesterolosis of gallbladder; R10.11 Right upper quadrant pain

== ENCOUNTER → 2020-08-24 | Outpatient (REF) | payer BC ==
[2020-08-24 16:39] LABS: AMYLASE 55 U/L (25-115); LIPASE 214 U/L (73-393)
== END ==
LOC: M LABDRAWC 15:38
PROVIDERS: ATTEND Nurse Practitioner Family
DX: R11.0 Nausea (principal); Z14.8 Genetic carrier of other disease; R12 Heartburn; K21.9 Gastro-esophageal reflux disease without esophagitis

== ENCOUNTER → 2020-09-21 | Outpatient (CLI) | payer BC ==
--- NOTE | 2020-09-21 10:16 | REP ---
INDICATION: ABD PAIN. COMPARISON: Right upper quadrant sonography August 16, 2020.. TECHNIQUE/RADIOTRACER AND DOSE: 6.6 mCi of Technetium-99m mebrofenin was injected and sequential anterior images are acquired. 65 minutes after the mebrofenin injection, the patient consumed 8 ounces Ensure and an additional 60 minutes of imaging was acquired. Regions of interest are plotted around the gallbladder. FINDINGS: The initial hepatocellular parenchymal uptake phase is normal and homogeneous. Intra- and extra-hepatic bile ducts are labeled by the 15-minute image. The gallbladder is first labeled on the 25-minute image. There is normal washout from the liver parenchyma into the gallbladder and small intestine on subsequent images. The gallbladder ejection fraction is 77%. Values greater than 35% are considered normal with this technique. IMPRESSION: Normal hepatobiliary scan and normal gallbladder ejection fraction. <Electronically signed by Everardo Guerrero > 09/21/20 1012
== END ==
LOC: M RAD 07:31
PROVIDERS: ATTEND Internal Medicine Gastroenterology
DX: R11.0 Nausea (principal); Z14.8 Genetic carrier of other disease; K21.9 Gastro-esophageal reflux disease without esophagitis; E55.9 Vitamin D deficiency, unspecified; R14.1 Gas pain; R14.0 Abdominal distension (gaseous); R13.10 Dysphagia, unspecified; K64.0 First degree hemorrhoids; R10.11 Right upper quadrant pain; R10.13 Epigastric pain
CPT/HCPCS: 78227; A9537

== ENCOUNTER → 2020-10-27 | Outpatient (REF) | payer BC ==
[2020-10-27 12:00] LABS: HEMATOCRIT 40.7 % (36.0-47.0); HEMOGLOBIN 12.5 g/dl (12.0-15.5); MEAN CORPUSCULAR HEMOGLOBIN 25.9 pg (27.0-33.0); MEAN CORPUSCULAR HGB CONC 30.7 g/dl (32.0-36.5); MEAN CORPUSCULAR VOLUME 84.3 fl (80.0-96.0); PLATELET COUNT, AUTOMATED 247 10^3/uL (150-450); RED BLOOD COUNT 4.83 10^6/uL (4.00-5.40); WHITE BLOOD COUNT 5.8 10^3/uL (4.0-10.0)
[2020-10-27 12:51] LABS: ALT/SGPT 24 U/L (12-78); BILIRUBIN,TOTAL 0.4 MG/DL (0.2-1.0); BLOOD UREA NITROGEN 24 MG/DL (7-18); CALCIUM LEVEL 9.5 MG/DL (8.8-10.2); CARBON DIOXIDE LEVEL 25 MEQ/L (21-32); CHLORIDE LEVEL 108 MEQ/L (98-107); CHOLESTEROL LEVEL 179 MG/DL (<200); CHOLESTEROL RISK RATIO 2.594 (<5); CREATININE FOR GFR 0.87 MG/DL (0.55-1.30); GLOMERULAR FILTRATION RATE > 60.0 (>45); GLUCOSE, FASTING 104 MG/DL (70-100); HDL CHOLESTEROL 69 MG/DL (>40); NON-HDL-C 110 MG/DL; POTASSIUM SERUM 4.4 MEQ/L (3.5-5.1); SODIUM LEVEL 140 MEQ/L (136-145); TRIGLYCERIDES LEVEL 75 MG/DL (<150)
[2020-10-27 12:52] LABS: LDL CHOLESTEROL 95 MG/DL (<100); THYROID STIMULATING HORMONE 0.844 uIU/ML (0.358-3.740); TOTAL 25(OH) VITAMIN D 44.1 NG/ML (30.0-100.0); TOTAL PROTEIN 7.1 GM/DL (6.4-8.2)
== END ==
LOC: M SFHCCLAY 09:12
PROVIDERS: ATTEND Nurse Practitioner Family
DX: I10 Essential (primary) hypertension (principal); E78.5 Hyperlipidemia, unspecified; E03.9 Hypothyroidism, unspecified; E55.9 Vitamin D deficiency, unspecified

== ENCOUNTER → 2020-12-06 | Outpatient (CLI) | payer BC ==
--- NOTE | 2020-12-06 10:21 | REP ---
INDICATION: R06.02, SHORTNESS OF BREATH COMPARISON: 04/06/2019 TECHNIQUE: PA and lateral. FINDINGS: The mediastinum and cardiac silhouette are normal. The lung [place] are clear and without acute consolidation, effusion, or pneumothorax. The skeletal structures are intact and normal. IMPRESSION: No acute cardiopulmonary process. <Electronically signed by John Sharp > 12/06/20 1019
== END ==
LOC: M CLY 09:36
PROVIDERS: ATTEND Physician Assistant
DX: R06.02 Shortness of breath (principal)

== ENCOUNTER → 2021-01-29 | Outpatient (REF) | payer BC | LOC: M SFHCCLAY 13:43 | PROVIDERS: ATTEND Nurse Practitioner Family | DX: E03.9 Hypothyroidism, unspecified (principal) ==

== ENCOUNTER → 2021-06-29 | Outpatient (REF) | payer BC ==
[~2021-06-29] MED LIST changes: +LOSA50TA28 PO; -LOSA50TA88 PO
[2021-06-29 16:05] LABS: HEMATOCRIT 38.8 % (36.0-47.0); HEMOGLOBIN 12.4 g/dl (12.0-15.5); MEAN CORPUSCULAR HEMOGLOBIN 26.1 pg (27.0-33.0); MEAN CORPUSCULAR VOLUME 81.7 fl (80.0-96.0); PLATELET COUNT, AUTOMATED 265 10^3/uL (150-450); RED BLOOD COUNT 4.75 10^6/uL (4.00-5.40); WHITE BLOOD COUNT 6.7 10^3/uL (4.0-10.0)
[2021-06-29 16:28] LABS: ALBUMIN 4.2 GM/DL (3.2-5.2); BILIRUBIN,TOTAL 0.3 MG/DL (0.2-1.0); CALCIUM LEVEL 9.2 MG/DL (8.8-10.2); CREATININE FOR GFR 1.06 MG/DL (0.55-1.30); GLOMERULAR FILTRATION RATE 55.2 (>45); POTASSIUM SERUM 4.3 MEQ/L (3.5-5.1); TOTAL PROTEIN 7.7 GM/DL (6.4-8.2)
== END ==
LOC: M LABDRAWC 15:29
PROVIDERS: ATTEND Nurse Practitioner
DX: R06.02 Shortness of breath (principal); R07.9 Chest pain, unspecified

== ENCOUNTER → 2021-08-13 | Outpatient (REF) | payer BC ==
[~2021-08-13] MED LIST changes: -FENO134C PO; +FENO134C16 PO
[2021-08-13 16:30] LABS: HEMATOCRIT 39.1 % (36.0-47.0); HEMOGLOBIN 12.4 g/dl (12.0-15.5); MEAN CORPUSCULAR HEMOGLOBIN 26.5 pg (27.0-33.0); MEAN CORPUSCULAR HGB CONC 31.7 g/dl (32.0-36.5); MEAN CORPUSCULAR VOLUME 83.5 fl (80.0-96.0); PLATELET COUNT, AUTOMATED 232 10^3/uL (150-450); RED BLOOD COUNT 4.68 10^6/uL (4.00-5.40); WHITE BLOOD COUNT 6.1 10^3/uL (4.0-10.0)
[2021-08-13 16:49] LABS: ALBUMIN 4.3 GM/DL (3.2-5.2); BILIRUBIN,TOTAL 0.3 MG/DL (0.2-1.0); C REACTIVE PROTEIN QUANTITATIV 0.3 MG/DL (0.00-0.30); CALCIUM LEVEL 9.5 MG/DL (8.8-10.2); GLOMERULAR FILTRATION RATE 58.9 (>45); MAGNESIUM LEVEL 2.1 MG/DL (1.8-2.4); PERCENT SATURATION 13.6 % (13.2-45.0); POTASSIUM SERUM 4.5 MEQ/L (3.5-5.1); TOTAL PROTEIN 7.3 GM/DL (6.4-8.2)
[2021-08-13 16:50] LABS: TOTAL 25(OH) VITAMIN D 31.7 NG/ML (30.0-100.0)
[2021-08-13 17:01] LABS: ERYTHROCYTE SEDIMENTATION RATE 10 mm/hr (0-30)
== END ==
LOC: M LABDRAWC 15:23
PROVIDERS: ATTEND Nurse Practitioner Family
DX: E56.9 Vitamin deficiency, unspecified (principal); R14.0 Abdominal distension (gaseous); R53.83 Other fatigue

== ENCOUNTER → 2021-08-13 | Outpatient (REF) | payer BC ==
[2021-08-13 16:26] LABS: BASO # 0.1 10^3/uL (0.0-0.2); BASO % 0.9 % (0.0-1.0); EOS # 0.2 10^3/uL (0.0-0.5); EOS % 3.4 % (0.0-3.0); HEMATOCRIT 39.9 % (36.0-47.0); HEMOGLOBIN 12.5 g/dl (12.0-15.5); LYMPH # 1.5 10^3/uL (1.5-5.0); LYMPH % 24.8 % (24.0-44.0); MEAN CORPUSCULAR HEMOGLOBIN 26.3 pg (27.0-33.0); MEAN CORPUSCULAR HGB CONC 31.3 g/dl (32.0-36.5); MONO # 0.5 10^3/uL (0.0-0.8); MONO % 7.7 % (2.0-8.0); NEUTROPHILS # 3.7 10^3/uL (1.5-8.5); NEUTROPHILS % 62.9 % (36.0-66.0); PLATELET COUNT, AUTOMATED 228 10^3/uL (150-450); RED BLOOD COUNT 4.75 10^6/uL (4.00-5.40); WHITE BLOOD COUNT 5.8 10^3/uL (4.0-10.0)
[2021-08-13 16:43] LABS: HEMOGLOBIN A1c 5.5 %
[2021-08-13 16:49] LABS: ALBUMIN 4.3 GM/DL (3.2-5.2); BILIRUBIN,TOTAL 0.3 MG/DL (0.2-1.0); CALCIUM LEVEL 9.5 MG/DL (8.8-10.2); CHOLESTEROL RISK RATIO 3.131 (<5); FREE T4 1.09 NG/DL (0.76-1.46); GLOMERULAR FILTRATION RATE 58.9 (>45); POTASSIUM SERUM 4.6 MEQ/L (3.5-5.1); THYROID STIMULATING HORMONE 2.18 uIU/ML (0.358-3.740); TOTAL 25(OH) VITAMIN D 33.4 NG/ML (30.0-100.0); TOTAL PROTEIN 7.4 GM/DL (6.4-8.2)
== END ==
LOC: M SFHCCLAY 10:18
PROVIDERS: ATTEND Nurse Practitioner Family
DX: E03.9 Hypothyroidism, unspecified (principal); E55.9 Vitamin D deficiency, unspecified; I10 Essential (primary) hypertension; K21.9 Gastro-esophageal reflux disease without esophagitis; E78.49 Other hyperlipidemia; N95.2 Postmenopausal atrophic vaginitis

== ENCOUNTER → 2021-09-13 | Outpatient (CLI) | payer BC | LOC: M WHC 10:21 | PROVIDERS: ATTEND Nurse Practitioner Family | DX: Z12.31 Encounter for screening mammogram for malignant neoplasm of breast (principal); Z80.42 Family history of malignant neoplasm of prostate; Z80.3 Family history of malignant neoplasm of breast ==

== ENCOUNTER → 2021-12-20 | Outpatient (CLI) | payer BC | LOC: M WHC 07:51 | PROVIDERS: ATTEND Internal Medicine Gastroenterology | DX: R19.7 Diarrhea, unspecified (principal); Z14.8 Genetic carrier of other disease; R93.3 Abnormal findings on diagnostic imaging of other parts of digestive tract; K76.0 Fatty (change of) liver, not elsewhere classified; R13.10 Dysphagia, unspecified; R14.0 Abdominal distension (gaseous); K21.9 Gastro-esophageal reflux disease without esophagitis; K80.20 Calculus of gallbladder without cholecystitis without obstruction ==

== ENCOUNTER → 2022-02-11 | Outpatient (REF) | payer BC ==
[2022-02-11 12:17] LABS: BASO % 0.6 % (0.0-1.0); EOS # 0.2 10^3/uL (0.0-0.5); EOS % 3.2 % (0.0-3.0); HEMATOCRIT 39.9 % (36.0-47.0); HEMOGLOBIN 12.5 g/dl (12.0-15.5); LYMPH # 1.4 10^3/uL (1.5-5.0); LYMPH % 22.5 % (24.0-44.0); MEAN CORPUSCULAR HEMOGLOBIN 26.4 pg (27.0-33.0); MEAN CORPUSCULAR HGB CONC 31.3 g/dl (32.0-36.5); MEAN CORPUSCULAR VOLUME 84.4 fl (80.0-96.0); MONO # 0.5 10^3/uL (0.0-0.8); MONO % 7.5 % (2.0-8.0); NEUTROPHILS # 4.1 10^3/uL (1.5-8.5); NEUTROPHILS % 65.7 % (36.0-66.0); PLATELET COUNT, AUTOMATED 242 10^3/uL (150-450); RED BLOOD COUNT 4.73 10^6/uL (4.00-5.40); WHITE BLOOD COUNT 6.3 10^3/uL (4.0-10.0)
[2022-02-11 14:26] LABS: ALBUMIN 4.1 GM/DL (3.2-5.2); ALT/SGPT 39 U/L (12-78); BILIRUBIN,TOTAL 0.3 MG/DL (0.2-1.0); BLOOD UREA NITROGEN 17 MG/DL (7-18); CALCIUM LEVEL 9.5 MG/DL (8.8-10.2); CARBON DIOXIDE LEVEL 29 MEQ/L (21-32); CHLORIDE LEVEL 108 MEQ/L (98-107); CHOLESTEROL LEVEL 198 MG/DL (<200); CREATININE FOR GFR 0.92 MG/DL (0.55-1.30); FREE T4 1.11 NG/DL (0.76-1.46); GLOMERULAR FILTRATION RATE > 60.0 (>45); GLUCOSE, FASTING 87 MG/DL (70-100); HDL CHOLESTEROL 72 MG/DL (>40); LDL CHOLESTEROL 107 MG/DL (<100); NON-HDL-C 126 MG/DL; POTASSIUM SERUM 4.7 MEQ/L (3.5-5.1); SODIUM LEVEL 141 MEQ/L (136-145); THYROID STIMULATING HORMONE 0.552 uIU/ML (0.358-3.740); TRIGLYCERIDES LEVEL 97 MG/DL (<150)
[2022-02-11 17:07] LABS: HEMOGLOBIN A1c 5.6 %
== END ==
LOC: M SFHCCLAY 09:13
PROVIDERS: ATTEND Nurse Practitioner Family
DX: E03.9 Hypothyroidism, unspecified (principal); E55.9 Vitamin D deficiency, unspecified; I10 Essential (primary) hypertension; K21.9 Gastro-esophageal reflux disease without esophagitis; E78.49 Other hyperlipidemia; N95.2 Postmenopausal atrophic vaginitis; Z13.1 Encounter for screening for diabetes mellitus

== ENCOUNTER → 2022-03-14 | Outpatient (REF) | payer BC ==
[2022-03-14 19:04] LABS: CALCIUM LEVEL 9.4 MG/DL (8.8-10.2); CREATININE FOR GFR 1.01 MG/DL (0.55-1.30); FREE T4 1.19 NG/DL (0.76-1.46); GLOMERULAR FILTRATION RATE 58.2 (>45); POTASSIUM SERUM 4.4 MEQ/L (3.5-5.1); THYROID STIMULATING HORMONE 0.98 uIU/ML (0.358-3.740)
== END ==
LOC: M LABDRAWC 17:22
PROVIDERS: ATTEND Physician Assistant
DX: R00.2 Palpitations (principal)

== ENCOUNTER → 2022-09-17 | Outpatient (REF) | payer BC ==
[~2022-09-17] MED LIST changes: -FENO134C16 PO; +FENO134C20 PO
[2022-09-17 17:39] LABS: BASO # 0.1 10^3/uL (0.0-0.2); BASO % 0.9 % (0.0-1.0); EOS # 0.2 10^3/uL (0.0-0.5); EOS % 2.9 % (0.0-3.0); HEMATOCRIT 40.9 % (36.0-47.0); HEMOGLOBIN 12.8 g/dl (12.0-15.5); LYMPH # 1.2 10^3/uL (1.5-5.0); LYMPH % 22.3 % (24.0-44.0); MEAN CORPUSCULAR HEMOGLOBIN 26.3 pg (27.0-33.0); MEAN CORPUSCULAR HGB CONC 31.3 g/dl (32.0-36.5); MONO # 0.4 10^3/uL (0.0-0.8); MONO % 7.5 % (2.0-8.0); NEUTROPHILS # 3.7 10^3/uL (1.5-8.5); NEUTROPHILS % 66.2 % (36.0-66.0); PLATELET COUNT, AUTOMATED 250 10^3/uL (150-450); RED BLOOD COUNT 4.87 10^6/uL (4.00-5.40); WHITE BLOOD COUNT 5.6 10^3/uL (4.0-10.0)
[2022-09-17 18:02] LABS: ALBUMIN 4.2 G/DL (3.2-5.2); ALKALINE PHOSPHATASE 75 U/L (46-116); ALT/SGPT 23 U/L (7.0-40); AST/SGOT 32 U/L (<34); BILIRUBIN,TOTAL 0.4 MG/DL (0.3-1.2); BLOOD UREA NITROGEN 20 MG/DL (9-23); CALCIUM LEVEL 9.8 MG/DL (8.3-10.6); CARBON DIOXIDE LEVEL 27 MMOL/L (20-31); CHLORIDE LEVEL 106 MMOL/L (98-107); CREATININE FOR GFR 0.91 MG/DL (0.55-1.30); GLOMERULAR FILTRATION RATE > 60.0 (>45); GLUCOSE, FASTING 96 MG/DL (74-106); MAGNESIUM LEVEL 1.9 MG/DL (1.8-2.4); POTASSIUM SERUM 4.6 MMOL/L (3.5-5.1); SODIUM LEVEL 141 MMOL/L (136-145); TOTAL PROTEIN 6.9 G/DL (5.7-8.2)
[2022-09-17 18:03] LABS: CHOLESTEROL RISK RATIO 2.91 (<5)
[2022-09-17 18:05] LABS: FREE T4 1.16 NG/DL (0.89-1.76); THYROID STIMULATING HORMONE 3.001 uIU/ML (0.55-4.78)
== END ==
LOC: M SFHCCLAY 09:55
PROVIDERS: ATTEND Nurse Practitioner Family
DX: E03.9 Hypothyroidism, unspecified (principal); I10 Essential (primary) hypertension; E55.9 Vitamin D deficiency, unspecified; K21.9 Gastro-esophageal reflux disease without esophagitis; E78.5 Hyperlipidemia, unspecified; N95.2 Postmenopausal atrophic vaginitis

== ENCOUNTER → 2022-10-01 | Outpatient (CLI) | payer BC | LOC: M WHC 12:57 | PROVIDERS: ATTEND Nurse Practitioner Family | DX: Z12.31 Encounter for screening mammogram for malignant neoplasm of breast (principal) ==

== ENCOUNTER → 2022-11-20 | Outpatient (CLI) | payer BC | LOC: M SLEEP HO 10-25 12:41 | PROVIDERS: ATTEND Nurse Practitioner Family | DX: R40.0 Somnolence (principal) ==

== ENCOUNTER → 2022-11-28 | Outpatient (CLI) | payer BC | LOC: M CLY 08:49 | PROVIDERS: ATTEND Nurse Practitioner Family | DX: R05.3 Chronic cough (principal) ==

== ENCOUNTER → 2022-12-31 | Outpatient (CLI) | payer BC ==
[2022-12-31 15:18] LABS: BLOOD UREA NITROGEN 18 MG/DL (9-23); CALCIUM LEVEL 9.6 MG/DL (8.3-10.6); CARBON DIOXIDE LEVEL 26 MMOL/L (20-31); CHLORIDE LEVEL 107 MMOL/L (98-107); CREATININE FOR GFR 0.81 MG/DL (0.55-1.30); GLOMERULAR FILTRATION RATE > 60.0 (>45); GLUCOSE, FASTING 79 MG/DL (74-106); SODIUM LEVEL 142 MMOL/L (136-145)
== END ==
LOC: M LAB 14:24
PROVIDERS: ATTEND Nurse Practitioner Family
DX: I10 Essential (primary) hypertension (principal)

== ENCOUNTER → 2022-12-31 | Outpatient (CLI) | payer BC ==
[~2022-12-31] MED LIST changes: +ISOVUE-370 76% 100ML VIAL As Ordered ONE
== END ==
LOC: M RAD 13:39
PROVIDERS: ATTEND Nurse Practitioner Family
DX: I70.0 Atherosclerosis of aorta (principal); J43.2 Centrilobular emphysema; Z96.611 Presence of right artificial shoulder joint; Z96.612 Presence of left artificial shoulder joint; M51.34 Other intervertebral disc degeneration, thoracic region
CPT/HCPCS: 71260; Q9967

== ENCOUNTER → 2023-03-17 | Outpatient (REF) | payer BC ==
[~2023-03-17] MED LIST changes: -ISOVUE-370 76% 100ML VIAL As Ordered ONE
[2023-03-17 11:45] LABS: ALBUMIN 3.9 G/DL (3.2-5.2); ALKALINE PHOSPHATASE 85 U/L (46-116); ALT/SGPT 17 U/L (7.0-40); AST/SGOT 24 U/L (<34); BILIRUBIN,TOTAL 0.3 MG/DL (0.3-1.2); BLOOD UREA NITROGEN 23 MG/DL (9-23); CALCIUM LEVEL 9.3 MG/DL (8.3-10.6); CARBON DIOXIDE LEVEL 28 MMOL/L (20-31); CHLORIDE LEVEL 108 MMOL/L (98-107); CREATININE FOR GFR 0.77 MG/DL (0.55-1.30); GLOMERULAR FILTRATION RATE > 60.0 (>45); GLUCOSE, FASTING 112 MG/DL (74-106); POTASSIUM SERUM 4.4 MMOL/L (3.5-5.1); SODIUM LEVEL 141 MMOL/L (136-145); TOTAL PROTEIN 6.6 G/DL (5.7-8.2)
[2023-03-17 11:47] LABS: FREE T4 1.26 NG/DL (0.89-1.76)
== END ==
LOC: M SFHCCLAY 08:59
PROVIDERS: ATTEND Nurse Practitioner Family
DX: I10 Essential (primary) hypertension (principal); E03.9 Hypothyroidism, unspecified; E55.9 Vitamin D deficiency, unspecified; K21.9 Gastro-esophageal reflux disease without esophagitis; N95.2 Postmenopausal atrophic vaginitis; E78.5 Hyperlipidemia, unspecified

== ENCOUNTER → 2023-04-22 | Outpatient (CLI) | payer BC | LOC: M WHC 09:01 | PROVIDERS: ATTEND Nurse Practitioner Family | DX: Z78.0 Asymptomatic menopausal state (principal) ==

== ENCOUNTER → 2023-06-03 | Outpatient (CLI) | payer BC | LOC: M RAD 08:47 | PROVIDERS: ATTEND Internal Medicine Gastroenterology | DX: R10.11 Right upper quadrant pain (principal); E55.9 Vitamin D deficiency, unspecified; K80.20 Calculus of gallbladder without cholecystitis without obstruction; K76.0 Fatty (change of) liver, not elsewhere classified ==

== ENCOUNTER → 2023-06-18 | Outpatient (REF) | payer BC ==
[2023-06-18 12:31] LABS: APPEARANCE, URINE CLEAR (CLEAR); BACTERIA, URINE AUTO NEGATIVE (NEGATIVE); BILIRUBIN, URINE AUTO NEGATIVE (NEGATIVE); BLOOD, URINE BLOOD NEGATIVE (NEGATIVE); COLOR, URINE YELLOW (YELLOW); GLUCOSE, URINE (UA) AUTO NEGATIVE (NEGATIVE); KETONE, URINE AUTO NEGATIVE (NEGATIVE); LEUKOCYTE ESTERASE, URINE AUTO NEGATIVE (NEGATIVE); MAGNESIUM LEVEL 1.9 MG/DL (1.8-2.4); NITRITE, URINE AUTO NEGATIVE (NEGATIVE); PROTEIN, URINE AUTO NEGATIVE (NEGATIVE); RBC, URINE AUTO 0 /HPF (0-3); SPECIFIC GRAVITY URINE AUTO 1.015 (1.002-1.035); SQUAMOUS EPITHELIAL CELL UR AU 0 /HPF (0-6); UROBILINOGEN, URINE AUTO 0.2 mg/dL (0.0-2.0); WBC, URINE AUTO 0 /HPF (0-3)
[2023-06-18 12:35] LABS: TOTAL 25(OH) VITAMIN D 70.7 NG/ML (20.0-100.0)
[2023-06-18 12:43] LABS: VITAMIN B12 LEVEL > 2000 PG/ML (211-911)
== END ==
LOC: M LABDRAWC 11:40
PROVIDERS: ATTEND Internal Medicine Gastroenterology
DX: R10.11 Right upper quadrant pain (principal); K82.4 Cholesterolosis of gallbladder; K76.0 Fatty (change of) liver, not elsewhere classified; E55.9 Vitamin D deficiency, unspecified; R19.7 Diarrhea, unspecified; Z12.11 Encounter for screening for malignant neoplasm of colon; R31.9 Hematuria, unspecified

== ENCOUNTER → 2023-06-18 | Outpatient (REF) | payer BC ==
[2023-06-18 12:36] LABS: FREE T4 1.2 NG/DL (0.89-1.76); THYROID STIMULATING HORMONE 4.585 uIU/ML (0.55-4.78)
== END ==
LOC: M SFHCCLAY 09:02
PROVIDERS: ATTEND Nurse Practitioner Family
DX: E03.9 Hypothyroidism, unspecified (principal)

== ENCOUNTER → 2023-06-29 | Outpatient (CLI) | payer BC | LOC: M SLEEP 20:00 | PROVIDERS: ATTEND Nurse Practitioner Family | DX: G47.33 Obstructive sleep apnea (adult) (pediatric) (principal) ==

== ENCOUNTER → 2023-07-29 | Outpatient (CLI) | payer BC ==
[~2023-07-29] MED LIST changes: +ISOVUE-300 61% 100ML VIAL As Ordered ONE; +LIDOCAINE 1% MDV 20ML VIAL As Ordered ONE; +methylPREDNISolone SUSP 40MG/ML 1ML VIAL (DEPO MEDROL) As Ordered ONE
== END ==
LOC: M RAD 14:29
PROVIDERS: ATTEND Physician Assistant
DX: M16.12 Unilateral primary osteoarthritis, left hip (principal)
CPT/HCPCS: 20610; 77002; J1030; Q9967

== ENCOUNTER → 2023-11-06 | Outpatient (CLI) | payer BC ==
[~2023-11-06] MED LIST changes: -ISOVUE-300 61% 100ML VIAL As Ordered ONE; -LIDOCAINE 1% MDV 20ML VIAL As Ordered ONE; -methylPREDNISolone SUSP 40MG/ML 1ML VIAL (DEPO MEDROL) As Ordered ONE
== END ==
LOC: M WHC 13:43
PROVIDERS: ATTEND Nurse Practitioner Family
DX: Z12.31 Encounter for screening mammogram for malignant neoplasm of breast (principal); R92.313 Mammographic fatty tissue density, bilateral breasts

== ENCOUNTER → 2024-01-02 | Outpatient (REF) | payer BC ==
[2024-01-02 18:08] LABS: RSV AMPLIFICATION NEGATIVE (NEGATIVE)
== END ==
LOC: M SFHCCLAY 10:09
PROVIDERS: ATTEND Physician Assistant
DX: R05.1 Acute cough (principal)

== ENCOUNTER → 2024-05-03 | Outpatient (REF) | payer BC ==
[2024-05-03 19:40] LABS: THYROID STIMULATING HORMONE 2.853 uIU/ML (0.55-4.78); TOTAL 25(OH) VITAMIN D 68.7 NG/ML (20.0-100.0)
[2024-05-03 19:43] LABS: FREE T4 1.19 NG/DL (0.89-1.76)
[2024-05-03 19:44] LABS: ALKALINE PHOSPHATASE 73 U/L (35-104); ALT/SGPT 14 U/L (7.0-40); AST/SGOT 16 U/L (<34); BASO % 0.7 % (0.0-1.0); BILIRUBIN,TOTAL 0.4 MG/DL (0.3-1.2); BLOOD UREA NITROGEN 29 MG/DL (9-23); CALCIUM LEVEL 10.1 MG/DL (8.3-10.6); CARBON DIOXIDE LEVEL 28 MMOL/L (20-31); CHLORIDE LEVEL 106 MMOL/L (98-107); CHOLESTEROL LEVEL 209 MG/DL (<200); CHOLESTEROL RISK RATIO 3.01 (<5); CREATININE FOR GFR 0.96 MG/DL (0.55-1.30); EOS # 0.1 10^3/uL (0.0-0.5); EOS % 2.5 % (0.0-3.0); GLOMERULAR FILTRATION RATE > 60.0 (>45); GLUCOSE, FASTING 88 MG/DL (74-106); HDL CHOLESTEROL 69.4 MG/DL (>40); HEMATOCRIT 38.5 % (36.0-47.0); HEMOGLOBIN 12.3 g/dl (12.0-15.5); LDL CHOLESTEROL 120.4 MG/DL (<100); LYMPH # 1.2 10^3/uL (1.5-5.0); LYMPH % 21.2 % (24.0-44.0); MAGNESIUM LEVEL 1.8 MG/DL (1.8-2.4); MEAN CORPUSCULAR HEMOGLOBIN 26.9 pg (27.0-33.0); MEAN CORPUSCULAR HGB CONC 31.9 g/dl (32.0-36.5); MEAN CORPUSCULAR VOLUME 84.2 fl (80.0-96.0); MONO # 0.5 10^3/uL (0.0-0.8); MONO % 8.1 % (2.0-8.0); NEUTROPHILS # 3.8 10^3/uL (1.5-8.5); NON-HDL-C 139.6 MG/DL; PLATELET COUNT, AUTOMATED 228 10^3/uL (150-450); POTASSIUM SERUM 4.4 MMOL/L (3.5-5.1); RED BLOOD COUNT 4.57 10^6/uL (4.00-5.40); SODIUM LEVEL 141 MMOL/L (136-145); TOTAL PROTEIN 6.9 G/DL (5.7-8.2); TRIGLYCERIDES LEVEL 96 MG/DL (<150); WHITE BLOOD COUNT 5.7 10^3/uL (4.0-10.0)
[2024-05-03 19:56] LABS: HEMOGLOBIN A1c 5.4 % (4.0-6.0)
== END ==
LOC: M SFHCCLAY 09:02
PROVIDERS: ATTEND Nurse Practitioner Family
DX: Z00.00 Encounter for general adult medical examination without abnormal findings (principal); E03.9 Hypothyroidism, unspecified; E55.9 Vitamin D deficiency, unspecified; N95.2 Postmenopausal atrophic vaginitis; E78.5 Hyperlipidemia, unspecified; Z13.1 Encounter for screening for diabetes mellitus; K21.9 Gastro-esophageal reflux disease without esophagitis; I10 Essential (primary) hypertension

== ENCOUNTER → 2024-06-01 | Outpatient (CLI) | payer BC ==
[~2024-06-01] MED LIST changes: +ISOVUE-300 61% 100ML VIAL As Ordered ONE; +LIDOCAINE 1% MDV 20ML VIAL As Ordered ONE; +PROHANCE 279.3MG/ML 5ML VIAL As Ordered ONE
== END ==
LOC: M RAD 06:18
PROVIDERS: ATTEND Physician Assistant
DX: M70.62 Trochanteric bursitis, left hip (principal); M16.12 Unilateral primary osteoarthritis, left hip
CPT/HCPCS: 27093; 73723; 77002; A9576; Q9967

== ENCOUNTER → 2024-08-13 | Outpatient (REF) | payer BC ==
[~2024-08-13] MED LIST changes: -ISOVUE-300 61% 100ML VIAL As Ordered ONE; -LIDOCAINE 1% MDV 20ML VIAL As Ordered ONE; -PROHANCE 279.3MG/ML 5ML VIAL As Ordered ONE
[2024-08-13 12:38] LABS: BASO % 0.7 % (0.0-1.0); EOS # 0.2 10^3/uL (0.0-0.5); EOS % 3.9 % (0.0-3.0); HEMATOCRIT 38.1 % (36.0-47.0); HEMOGLOBIN 11.9 g/dl (12.0-15.5); LYMPH # 1.3 10^3/uL (1.5-5.0); LYMPH % 23.5 % (24.0-44.0); MEAN CORPUSCULAR HEMOGLOBIN 26.6 pg (27.0-33.0); MEAN CORPUSCULAR HGB CONC 31.2 g/dl (32.0-36.5); MEAN CORPUSCULAR VOLUME 85.2 fl (80.0-96.0); MONO # 0.3 10^3/uL (0.0-0.8); MONO % 6.3 % (2.0-8.0); NEUTROPHILS # 3.5 10^3/uL (1.5-8.5); NEUTROPHILS % 65.2 % (36.0-66.0); PLATELET COUNT, AUTOMATED 251 10^3/uL (150-450); RED BLOOD COUNT 4.47 10^6/uL (4.00-5.40); WHITE BLOOD COUNT 5.4 10^3/uL (4.0-10.0)
[2024-08-13 12:45] LABS: INR 0.93; PARTIAL THROMBOPLASTIN TIME 28.4 SECONDS (24.8-34.2); PROTHROMBIN TIME 12.8 SECONDS (12.5-14.5)
[2024-08-13 13:04] LABS: ALBUMIN 4.1 G/DL (3.2-5.2); ALKALINE PHOSPHATASE 75 U/L (35-104); ALT/SGPT 14 U/L (7.0-40); AST/SGOT 22 U/L (<34); BILIRUBIN,TOTAL 0.3 MG/DL (0.3-1.2); BLOOD UREA NITROGEN 27 MG/DL (9-23); CALCIUM LEVEL 9.7 MG/DL (8.3-10.6); CARBON DIOXIDE LEVEL 29 MMOL/L (20-31); CHLORIDE LEVEL 106 MMOL/L (98-107); CREATININE FOR GFR 0.91 MG/DL (0.55-1.30); GLOMERULAR FILTRATION RATE > 60.0 (>39); GLUCOSE, FASTING 89 MG/DL (74-106); IRON (FE) 63 UG/DL (50-170); PERCENT SATURATION 16.7 % (13.2-45.0); POTASSIUM SERUM 4.7 MMOL/L (3.5-5.1); SODIUM LEVEL 143 MMOL/L (136-145); TOTAL IRON BINDING CAPACITY 377 UG/DL (250-425)
[2024-08-13 13:06] LABS: FERRITIN 77.7 NG/ML (7.3-270.7)
== END ==
LOC: M LABDRAWC 12:15
PROVIDERS: ATTEND Orthopaedic Surgery
DX: Z01.812 Encounter for preprocedural laboratory examination (principal); M25.552 Pain in left hip; M16.12 Unilateral primary osteoarthritis, left hip; D68.9 Coagulation defect, unspecified

== ENCOUNTER → 2025-04-22 | Outpatient (REF) | payer BC ==
[2025-04-22 15:13] LABS: PLATELET COUNT, AUTOMATED 271 10^3/uL (150-450)
[2025-04-22 15:41] LABS: MAGNESIUM LEVEL 1.8 MG/DL (1.8-2.4)
[2025-04-22 15:42] LABS: IRON (FE) 49.0 UG/DL (50-170); PERCENT SATURATION 13.2 % (13.2-45.0)
[2025-04-22 15:45] LABS: TOTAL 25(OH) VITAMIN D 53.8 NG/ML (20.0-100.0)
[2025-04-22 15:49] LABS: VITAMIN B12 LEVEL 422.0 PG/ML (211-911)
== END ==
LOC: M LABDRAWC 12:18
PROVIDERS: ATTEND Internal Medicine Gastroenterology
DX: R13.10 Dysphagia, unspecified (principal); Z14.8 Genetic carrier of other disease; R19.7 Diarrhea, unspecified; Z79.899 Other long term (current) drug therapy; K58.9 Irritable bowel syndrome, unspecified

== ENCOUNTER → 2025-05-10 | Outpatient (REF) | payer BC ==
[2025-05-10 19:17] LABS: APPEARANCE, URINE HAZY (CLEAR); BACTERIA, URINE AUTO NEGATIVE (NEGATIVE); BILIRUBIN, URINE AUTO NEGATIVE (NEGATIVE); BLOOD, URINE BLOOD NEGATIVE (NEGATIVE); GLUCOSE, URINE (UA) AUTO NEGATIVE (NEGATIVE); KETONE, URINE AUTO NEGATIVE (NEGATIVE); LEUKOCYTE ESTERASE, URINE AUTO NEGATIVE (NEGATIVE); NITRITE, URINE AUTO NEGATIVE (NEGATIVE); PROTEIN, URINE AUTO NEGATIVE (NEGATIVE); RBC, URINE AUTO 1 /HPF (0-3); SPECIFIC GRAVITY URINE AUTO 1.018 (1.002-1.035); SQUAMOUS EPITHELIAL CELL UR AU 0 /HPF (0-6); UROBILINOGEN, URINE AUTO 0.2 mg/dL (0.0-2.0); WBC, URINE AUTO 0 /HPF (0-3)
[2025-05-10 19:32] LABS: ALT/SGPT 15.0 U/L (7.0-40); AST/SGOT 25.0 U/L (<34); CALCIUM LEVEL 9.8 MG/DL (8.3-10.6); CARBON DIOXIDE LEVEL 29.0 MMOL/L (20-31); CHLORIDE LEVEL 102.0 MMOL/L (98-107); CHOLESTEROL LEVEL 180.0 MG/DL (<200); CHOLESTEROL RISK RATIO 2.57 (<5); CREATININE FOR GFR 0.94 MG/DL (0.55-1.30); FREE T4 1.51 NG/DL (0.89-1.76); GLOMERULAR FILTRATION RATE 65.3 (>39); LDL CHOLESTEROL 91.1 MG/DL (<100); NON-HDL-C 110.1 MG/DL; POTASSIUM SERUM 4.9 MMOL/L (3.5-5.1); SODIUM LEVEL 141.0 MMOL/L (136-145); TRIGLYCERIDES LEVEL 95.0 MG/DL (<150)
[2025-05-10 19:46] LABS: ESTIMATED AVERAGE GLUCOSE 103.0 MG/DL (60-110)
== END ==
LOC: M SFHCCLAY 09:34
PROVIDERS: ATTEND Nurse Practitioner Family
DX: E78.5 Hyperlipidemia, unspecified (principal); E03.9 Hypothyroidism, unspecified; Z13.1 Encounter for screening for diabetes mellitus; R82.90 Unspecified abnormal findings in urine